=== PATIENT | male | born 1995 | race African-American/Black ===

== ENCOUNTER 2021-01-08 18:03 | Emergency (ER) | payer MEDICAID ==
[~2021-01-08] VITALS: Ht 182.9 cm; Wt 114.0 kg
[2021-01-08 18:18] VITALS: BP 136/80
== END 2021-01-08 18:55 | disposition left against medical advice (07) ==
LOC: ER 18:03
DX: Z53.21 Procedure and treatment not carried out due to patient leaving prior to being seen by health care provider (principal)